=== PATIENT | male | born 1965 | race Two or more races ===

== ENCOUNTER → 2017-02-22 | Outpatient (CLI) | payer MEDICARE, BC, OTHER ==
[~2017-02-22] MED LIST: ALLO10TA PO; AMLO2.5T PO; DOXA1TAB73 PO; FURO40TA2 PO; GABA600T PO; GLIM4TAB PO; INSUDET SC; JANU50TA8 PO; LOSA100T5 PO; METO1TAB33 PO; METO1TAB7 PO; OXYC1TAB23 PO; OXYC20TA40 PO; PANT40TA2 PO; POTA99TA PO; SIMV20TA2 PO; SYNT88TA2 PO; VITATAB11 PO
--- NOTE | 2017-03-17 00:11 | ECWPNPC ---
PATIENT NAME: JENNY CREWS : 1965 GENDER: MALE VISIT DATE: 02/22/2017 DISCHARGE DATE: 02/22/17 1520 VISIT LOCKED DATE TIME: PHYSICIAN: SKYLER INIGUEZ RESOURCE: SKYLER INIGUEZ REASON FOR APPOINTMENT 1. LOW BACK/ NEUROPATHY HISTORY OF PRESENT ILLNESS FALL RISK SCREENING: SCREENING :NO FALLS IN THE PAST YEAR PAIN SCREENING: PATIENT HAS A COMPLAINT OF ACUTE OR CHRONIC PAIN :YES TODAY'S VISIT: NOTES: REFERRED BY RACIEL DALEY FOR LOW BACK PAIN WITH RADICULOPATHY. HAS HAD A LONG HISTORY OF MANY YEARS I THE LOW BACK. NOTES THE WORST HAD BEEN WHEN STANDING. HAS BEEN SEEN BY ALLISON RICO MD IN [place] WHO DID INJECTIONS WHICH PROVIDED NO RELIEF. HAS BEEN ON SMALL DOSES OF OPIATES AFTER MANY YEARS BUT THIS IS ONLY PROVIDING TEMP RELIEF. WHEN SITS DOWN BACK PAIN IMPROVES BUT THE FEET FEEL LIKE INTENSE PRICKLES. THIS HAS BEEN PRESENT FOR 5 YEARS. HAS TRIED A KWELL UNIT, CAPSACIAN, MULTIPLE LOTIONS AND CREAMS, CYMBALTA, GABAPENTIN, LYRICA, AMITRIPTLINE ALL WITH NO RELIEF. HAS DONE SOME RESEARCH ON DORSAL COLUMN STIMUL. CURRENT MEDICATIONS TAKING LOSARTAN POTASSIUM-HCTZ 100-25 MG TABLET 1 TABLET ORALLY ONCE A DAY TAKING JANUMET 50-1000 MG TABLET 1 TABLET WITH MEALS ORALLY TWICE A DAY TAKING FUROSEMIDE 40 MG TABLET 1 TABLET ORALLY ONCE A DAY TAKING GABAPENTIN 600 MG TABLET 1 TABLET ORALLY THREE TIMES A DAY TAKING LEVOTHYROXINE SODIUM 88 MCG TABLET 1 TABLET ON AN EMPTY STOMACH IN THE MORNING ORALLY ONCE A DAY TAKING DOXAZOSIN MESYLATE 8 MG TABLET 1 TABLET ORALLY ONCE A DAY TAKING SIMVASTATIN 20 MG TABLET 1 TABLET IN THE EVENING ORALLY ONCE A DAY TAKING GLIMEPIRIDE 4 MG TABLET 1 TABLET WITH BREAKFAST OR THE FIRST MAIN MEAL OF THE DAY ORALLY ONCE A DAY TAKING AMLODIPINE BESYLATE 2.5 MG TABLET 1 TABLET ORALLY ONCE A DAY TAKING METOPROLOL SUCCINATE ER 100 MG TABLET EXTENDED RELEASE 24 HOUR 1 TABLET ORALLY ONCE A DAY TAKING ALLOPURINOL 300 MG TABLET 1 TABLET ORALLY ONCE A DAY TAKING OXYCONTIN 20 MG TABLET EXTENDED RELEASE 12 HOUR 1 TABLET ORALLY EVERY 12 HRS/MMD#2 TAKING OXYCODONE-ACETAMINOPHEN 5-325 MG TABLET 1 TABLET NEEDED ORALLY EVERY 6 HRS TAKING LEVEMIR FLEXPEN TAKING GLUCOSAMINE CHOND DOUBLE STR - TABLET ORALLY TAKING POTASSIUM GLUCONATE 595 (99 K) MG TABLET ORALLY TAKING PANTOPRAZOLE SODIUM 40 MG TABLET DELAYED RELEASE 1 TABLET ORALLY ONCE A DAY TAKING GINKOBA 40 MG TABLET ORALLY TAKING VITAMIN B-1 100 MG TABLET 1 TABLET ORALLY ONCE A DAY TAKING VITAMIN B 12 100 MCG LOZENGE ORALLY TAKING VITAMIN B-6 100 MG TABLET 1 TABLET ORALLY ONCE A DAY MEDICATION LIST REVIEWED AND RECONCILED WITH THE PATIENT PAST MEDICAL HISTORY HTN SLEEP APNEA / USES BIPAP DM WITH PERIPHERAL NEUROPATHY GOUT BPH GERD HYPOTHYROIDISM HYPERCHOLESTEROLISM LOW BACK PAIN / SPINAL STENOSIS MORBID OBESITY ALLERGIES N.K.D.A. SURGICAL HISTORY APPENDECTOMY 1981 UMBILICAL HERNIA REPAIR 2006 RIGHT TOTAL KNEE REPLACEMENT 2012 SCOPE TO EACH KNEE 2003, 2006 REMOVE CATARACT LEFT 2011 REMOVE CATARACT RIGHT 2012 FAMILY HISTORY FATHER: 77 YRS, DIAGNOSED WITH HYPERTENSION, HEART DISEASE MOTHER: 70 YRS, DIAGNOSED WITH DIABETES, HYPERTENSION 1 BROTHER(S) . 3DAUGHTER(S) . SOCIAL HISTORY GENERAL: TOBACCO USE ARE YOU A:LIGHT TOBACCO SMOKER ADDITIONAL FINDINGS: TOBACCO USERCIGAR SMOKER SMOKING CESSATION INFORMATION GIVEN02/22/2017 LUNG CANCER SCREENING SMOKING STATUS:CURRENT SMOKER ALCOHOL SCREENING POINTS4 INTERPRETATIONPOSITIVE OCCUPATION: RETIRED [employer]. SHINTO [id number] RESTORATIONIST LANGUAGE LANGUAGES SPOKEN:TURKMEN EDUCATION LEVEL OF EDUCATION:HIGH SCHOOL LEARNING BARRIERS / SPECIAL NEEDS HEARING IMPAIRED?YES :HEARING AIDES VISION IMPAIRED?YES :CORRECTIVE LENSES COGNITIVELY IMPAIRED?NO READINESS TO LEARN?YES LEARNING PREFERENCES?YES :BOOKLETS, HANDOUTS SPECIAL DEVICES?YES :CANE ADVANCE DIRECTIVES HEALTH CARE PROXY?YES NAME OF HCP FATEMEH- DO YOU HAVE A DNR?YES DO YOU HAVE A COPY WITH YOU?NO LIVING WILL?NO WOULD YOU LIKE MORE INFORMATION?NO POWER OF HORTICULTURAL NURSERY ASSISTANT?NO WOULD YOU LIKE MORE INFORMATION?NO HOSPITALIZATION/MAJOR DIAGNOSTIC PROCEDURE SEE ABOVE REVIEW OF SYSTEMS FOLLOW-UP ROS: PSYCHOLOGY: SLEEP DISTURBANCE - DISRUPTED BY PAIN . REVIEWED BY: PROVIDER: SKYLER HARRIS . CONSTITUTIONAL: NEW UNEXPLAINABLE WEIGHT LOSS? HAS WORKED HARD ON WEIGHT LOSS, DOWN FROM 390 LBS . ANY CHANGE IN YOUR MEDICAL CONDITION? NO . CHILLS NO . FEVER NO . INFECTION: DO YOU HAVE NEW INFECTIONS? NO . DO YOU HAVE HISTORY OF MRSA? NO . MUSCULOSKELETAL: ANY NEW PATTERNS OF PAIN OR NUMBNESS? NO . SYTEMIC LUPUS NO . GASTROENTEROLOGY: GENERAL RECENT LOOSE STOOLS X FEW WEEKS. . ANY NEW CHANGE IN BOWEL CONTROL? NO . BARRETTS ESOPHAGUS NO . CIRRHOSIS NO . HEPATITIS NO . LIVER FAILURE NO . ADDOMINAL PAIN NONE . ACID REFLUX YES - UNDER CONTROL . UNEXPLAINED WEIGHT LOSS NO . GENITOURINARY: ANY NEW CHANGE IN BLADDER CONTROL? NO . IS THERE A CHANCE YOU COULD BE ? NO . HEMATOLOGY/LYMPH: GENERAL VARICOSE VEINS . DO YOU TAKE ANY BLOOD THINNERS? (FOR EXAMPLE- COUMADIN, PLAVIX, AGGRENOX, PLATEL, PRADAXA, OR XARELTO) NO . WHEN WAS YOUR LAST DOSE? DATE: TIME: . LOW PLATELET COUNT NO . SICKLE CELL DISEASE NO . VON WILLIEBRANDS NO . FACTOR V LEIDEN NO . THALLASEMIA NO . ANEMIA NO . EASY BRUISING NO . NEUROLOGY: HAVE YOU FALLEN IN THE PAST 6 MONTHS? YES, PT STATES HE FELL DUE TO PAIN, LOSS OF BALANCE AND WEAKNESS. PT DENIES INJURIES REQUIRING MEDICAL ATTENTION . ANY NEW EXTREMITY NUMBNESS OR WEAKNESS? NO . HEAD INJURY NO . DEMENTIA NO . CEREBRAL PALSY NO . MULTIPLE SCLEROSIS NO . DIZZINESS NO . HEADACHE INTERMITTANT - FELT TO BE DUE TO ELEVATED BLOOD PRESSURE . STROKES NO . VERTIGO NO . CARDIOLOGY: DO YOU HAVE A PACEMAKER OR DEFIBRILLATOR? NO . ANGINA NO . HEART ATTACK NO . HEART SURGERY NO . CONGESTIVE HEART FAILURE/FLUID OVERLOAD YES - ON LASIX , FOLLOWED BY DR KIMBALL . CHEST PAIN NO . HIGH BLOOD PRESSURE NO . IRREGULAR HEART BEAT NO . RESPIRATORY: HAVE YOU BEEN SICK IN THE PAST WEEK? NO . FEVER NO . FLU LIKE SYMPTOMS? NO . CPAP NO . BYPAP YES . ASTHMA NO . EMPHYSEMA NO . CHRONIC LUNG DISEASES NO . SHORTNESS OF BREATH ON EXERTION NO . COUGH NO . SNORING YES, SLEEP APNEA . INTEGUMENTARY: DO YOU HAVE ANY RASHES OR OPEN SORES? NO . ALLERGIC/IMMUNO: ARE YOU ALLERGIC TO SHELLFISH OR IV DYE? NO . ANY NEW ALLERGIES? NO . PSYCHIATRIC: DO YOU HAVE THOUGHTS OF HURTING YOURSELF OR SOMEONE ELSE? NO . ARE YOU ABUSED, NEGLECTED, OR IN AN UNSAFE ENVIRONMENT? NO . ENDOCRINOLOGY: ARE YOU DIABETIC? YES 5.4 A1C . THYROID DISORDER HYPOTHYROID, YES . OTHER: DO YOU NEED ANY PRESCRIPTIONS? NO . IF YES, PLEASE LIST: ____ . ANY NEW PROBLEMS WITH YOUR MEDICATIONS? NO . WHEN DID YOU LAST EAT? ____ . WHEN DID YOU LAST DRINK? ____ . WHAT DID YOU LAST DRINK? ____ . NAME OF PERSON DRIVING YOU HOME? ____ . DO YOU HAVE ANY OTHER QUESTIONS OR CONCERNS PT WOULD LIKE TO DISCUSS IMPLANTABLE NERVE STIMULATOR . PSYCHOLOGY: BECKS DEPRESSION INVENTORY DENIES SUICIDAL OR HOMICIDAL IDEATION . VITAL SIGNS WT 307 LBS, HT 71 IN, BMI 42.81 INDEX, BP 128/88 MM HG, HR 68 /MIN, RR 18 /MIN, TEMP 97.3 F, OXYGEN SAT % 98, REVIEWED BY: EM. EXAMINATION GENERAL EXAMINATION: GENERAL APPEARANCE:WELL GROOMED. PSYCHALERT , ORIENTED X 3 , APPROPRIATE MOOD AND AFFECT . HEENT:NORMOCEPHALIC, THICK NECK, NO THYROMEGLY, NO LYMPHADENOPATHY. LUNGS:CLEAR TO AUSCULTATION BILATERALLY, NO WHEEZES, RALES OR RHONCHI. HEART:HEART RATE REGULAR, NORMAL S1S2, NO MURMURS, CLICK OR RUBS. MUSCULOSKELETAL:TENDER WITH PALPATION OVER LUMBAT SPINOUS PROCESSES POINT TENDERNESS OVER , R>L SIJ, SLOW TO RISE TO STANDING POSITION, POSTURE UPRIGHT, GAIT WIDE BASED. POOR BALANCE. EXTREMITIES:TRACE TO 1+ LOWER EXTREMITY EDEMA. NEUROLOGIC EXAM:STOCKING AND GLOVE SENSORY LOSS RIGHT TO JUST BELOW THE KNEE AND LEFT TO MID CALF. DTR'S TRACE TO ABSENT BILATERAL LOWER EXTREMITIES. POSITIVE ROMBERG. ASSESSMENTS NEUROPATHY - G62.9 (PRIMARY) LUMBAR SPINAL STENOSIS - M48.06 TREATMENT NEUROPATHY [facility] MRI SPINE, L.S. WITHOUT [id number],SUSAN M 02/22/2017 3:02:51 PM > FOR DORSAL COLUMN STIM [facility] MRI SPINE,THORACIC WITHOUT [id number],SUSAN M 02/22/2017 3:03:16 PM > DORSAL COLUM STIM PREP NOTES: DORSAL COLUMN STIM PREP - WILL REQUEST PSYCH EVAL - [place] IF POSSIBLE , FALLS CARE PLAN: 1. RECOMMEND REMOVING ALL THROW RUGS. 2. RECOMMEND NIGHT LIGHTS 3. RECOMMEND WEARING RUBBER SOLED SHOES AND TO NOT GO BAREFOOT. 4.. ADVISED TO CHANGE POSITION SLOWLY FROM SUPINE TO STANDING TO AVOID DIZZINESS. 5. ADVISED TO USE ASSISTIVE DEVICE SUCH CANE OR WALKER 6. USE LIFELINE SERVICES OR KEEP PORTABLE PHONE READILY AVAILABLE, #128 - SCREENING BMI AND F/U PLAN IN : BMI ABOVE NORMAL TODAY. DISCUSSED WITH PATIENT NUTRITIONAL FOOD CHOICES TO ASSIST WITH WEIGHT LOSS. RECCOMMENDED REDUCING SALT, SUGAR, SODA INTAKE. WORK WITH PCP REGARDING BLOOD SUGAR CONTROL. RECOMMEND INCREASE ACTIVITY TO INCLUDE WALKING ON A REGULAR BASIS. PROFESSIONAL NUTRITIONAL NUTRITIONAL GUIDANCE WAS OFFERED AND WAS DECLINED. CLINICAL NOTES: ISTOP REGISTRY REVIEWED (#[id number]) GREATER THAN 25 MINUTES SPENT IN FACE TO FACE DISCUSSION REGARDING OPTION OF DORSAL COLUMN STIMULATOR FOR MANAGEMENT OF LOWER EXTREMITY PERIPHERAL NEUROPATHY. RISKS AND BENEFITS AND THE EVALUATION PROCESS WERE REVIEWED WITH THE PATIENT AND HIS . TYPES OF STIMULATORS WERE REVIEWED AND THE DVD FROM [employer] WAS GIVE TO THE PATIENT FOR HIS REVIEW. LUMBAR SPINAL STENOSIS [facility] MRI SPINE, L.S. WITHOUT [id number],SUSAN M 02/22/2017 3:02:51 PM > FOR DORSAL COLUMN STIM PROCEDURE CODES FA211 ESTABILISHED PATIENT [facility] FACILITY CHARGE G8783 BP SCR PRFRM RCMDD DEFIND SCR INTVL G8730 PAIN ASSESS POS TOOL F/U PLAN DOC 3016F PT SCRND UNHLTHY [place] USE 1124F ACP DISCUSS-NO DSCNMKR DOCD 1036F TOBACCO NON-USER 0518F FALL PLAN OF CARE DOCD G8427 DOC MEDS VERIFIED W/PT OR RE G8417 BMI >=30 CALCUATE W/FOLLOWUP 3288F FALL RISK ASSESSMENT DOCD DISPOSITION & COMMUNICATION FOLLOW UP DR RAI TO DISCUSS DCS (REASON: CHECK AUTH FOR LIANNA'S FOR DCS - BACK/NEUROPATHY PAIN) ELECTRONICALLY SIGNED BY CLIVE WHITE ON 03/15/2017 AT 08:26 AM EDT DISCLAIMER : THIS IS A VISIT SUMMARY EXTRACTED FROM THE [email or web address] CHART. IT IS NOT A COPY OF THE [employer] PROGRESS NOTE. MTDD
== END ==
LOC: M PAIN 13:30
PROVIDERS: ATTEND Nurse Practitioner Family
DX: G62.9 Polyneuropathy, unspecified (principal); M48.06 Spinal stenosis, lumbar region; I10 Essential (primary) hypertension; E11.9 Type 2 diabetes mellitus without complications; Z79.891 Long term (current) use of opiate analgesic; Z79.899 Other long term (current) drug therapy; Z79.84 Long term (current) use of oral hypoglycemic drugs; F17.210 Nicotine dependence, cigarettes, uncomplicated

== ENCOUNTER → 2017-04-05 | Outpatient (CLI) | payer MEDICARE, OTHER ==
--- NOTE | 2017-04-16 02:38 | ECWPNPC ---
PATIENT NAME: JENNY CREWS : 1965 GENDER: MALE VISIT DATE: 04/05/2017 DISCHARGE DATE: 04/05/17 1627 VISIT LOCKED DATE TIME: PHYSICIAN: PATRICA RAI RESOURCE: PATRICA RIA REASON FOR APPOINTMENT 1. LOW BACK PAIN HISTORY OF PRESENT ILLNESS HISTORY OF PRESENT ILLNESS: PAIN THE PATIENT DESCRIBES THE PAIN... 51 YEAR OLD MALE PATIENT WITH HISTORY OF CHRONIC LOW BACK PAIN. PATIENT DESCRIBES THE PAIN SHARP, STABBING, THROBBING, SHOOTING AND HAVING IT ALL THE TIME WITH A PAIN SCORE OF 8/10. CURRENTLY THE PATIENT IS USING OXYCONTIN AND OXYCODONE FOR THE SOMATIC PAIN AND HE STATES THAT THE MEDICATION TAKES THE EDGE OFF FROM THE PAIN IN HIS BACK BUT DOES NOT HELP THE TINGLY SENSATION HE IS HAVING IN HIS FEET. AT THIS TIME PATIENT WOULD LIKE TO PROCEED WITH THE DCS TRIAL. PATIENT DENIES UNEXPLAINABLE WEIGHT LOSS, FEVER, CHILLS, NEW CHANGES ON HIS URINARY OR BOWEL CONTROL. FALL RISK SCREENING: SCREENING :NO FALLS IN THE PAST YEAR CURRENT MEDICATIONS TAKING LOSARTAN POTASSIUM-HCTZ 100-25 MG TABLET 1 TABLET ORALLY ONCE A DAY TAKING JANUMET 50-1000 MG TABLET 1 TABLET WITH MEALS ORALLY TWICE A DAY TAKING FUROSEMIDE 40 MG TABLET 1 TABLET ORALLY ONCE A DAY TAKING GABAPENTIN 600 MG TABLET 1 TABLET ORALLY THREE TIMES A DAY TAKING LEVOTHYROXINE SODIUM 88 MCG TABLET 1 TABLET ON AN EMPTY STOMACH IN THE MORNING ORALLY ONCE A DAY TAKING DOXAZOSIN MESYLATE 8 MG TABLET 1 TABLET ORALLY ONCE A DAY TAKING SIMVASTATIN 20 MG TABLET 1 TABLET IN THE EVENING ORALLY ONCE A DAY TAKING GLIMEPIRIDE 4 MG TABLET 1 TABLET WITH BREAKFAST OR THE FIRST MAIN MEAL OF THE DAY ORALLY ONCE A DAY TAKING AMLODIPINE BESYLATE 2.5 MG TABLET 1 TABLET ORALLY ONCE A DAY TAKING METOPROLOL SUCCINATE ER 100 MG TABLET EXTENDED RELEASE 24 HOUR 1 TABLET ORALLY ONCE A DAY TAKING ALLOPURINOL 300 MG TABLET 1 TABLET ORALLY ONCE A DAY TAKING OXYCONTIN 20 MG TABLET EXTENDED RELEASE 12 HOUR 1 TABLET ORALLY EVERY 12 HRS/MMD#2 TAKING OXYCODONE-ACETAMINOPHEN 5-325 MG TABLET 1 TABLET NEEDED ORALLY EVERY 6 HRS TAKING LEVEMIR FLEXPEN TAKING GLUCOSAMINE CHOND DOUBLE STR - TABLET ORALLY TAKING POTASSIUM GLUCONATE 595 (99 K) MG TABLET ORALLY TAKING PANTOPRAZOLE SODIUM 40 MG TABLET DELAYED RELEASE 1 TABLET ORALLY ONCE A DAY TAKING GINKOBA 40 MG TABLET ORALLY TAKING VITAMIN B-1 100 MG TABLET 1 TABLET ORALLY ONCE A DAY TAKING VITAMIN B 12 100 MCG LOZENGE ORALLY TAKING VITAMIN B-6 100 MG TABLET 1 TABLET ORALLY ONCE A DAY MEDICATION LIST REVIEWED AND RECONCILED WITH THE PATIENT PAST MEDICAL HISTORY HTN SLEEP APNEA / USES BIPAP DM WITH PERIPHERAL NEUROPATHY GOUT BPH GERD HYPOTHYROIDISM HYPERCHOLESTEROLISM LOW BACK PAIN / SPINAL STENOSIS MORBID OBESITY ALLERGIES N.K.D.A. SOCIAL HISTORY GENERAL: TOBACCO USE ARE YOU A:LIGHT TOBACCO SMOKER ADDITIONAL FINDINGS: TOBACCO USERCIGAR SMOKER SMOKING CESSATION INFORMATION GIVEN02/22/2017 LUNG CANCER SCREENING SMOKING STATUS:CURRENT SMOKER ALCOHOL SCREENING DID YOU HAVE A DRINK CONTAINING ALCOHOL IN THE PAST YEAR?YES HOW MANY DRINKS DID YOU HAVE ON A TYPICAL DAY WHEN YOU WERE DRINKING IN THE PAST YEAR?3 OR 4 (1 POINT) HOW OFTEN DID YOU HAVE A DRINK CONTAINING ALCOHOL IN THE PAST YEAR?TWO TO THREE TIMES PER WEEK (3 POINTS) POINTS4 INTERPRETATIONPOSITIVE OCCUPATION: RETIRED [employer]. SHINTO [id number] TAOISM LANGUAGE LANGUAGES SPOKEN:GEORGIAN EDUCATION LEVEL OF EDUCATION:HIGH SCHOOL LEARNING BARRIERS / SPECIAL NEEDS HEARING IMPAIRED?YES VISION IMPAIRED?YES COGNITIVELY IMPAIRED?NO :HEARING AIDES :CORRECTIVE LENSES READINESS TO LEARN?YES LEARNING PREFERENCES?YES :BOOKLETS, HANDOUTS SPECIAL DEVICES?YES :[facility] PFS, CLERGY, PUBLIC HEALTH REFERRALS HAS THE PATIENT BEEN EDUCATED REGARDING HIS/HER PLAN OF CARE?YES HAS THE PATIENT BEEN EDUCATED REGARDING PAIN, THE RISK FOR PAIN, THE IMPORTANCE OF EFFECTIVE PAIN MANAGEMENT, AND THE PAIN ASSESSMENT PROCESS?YES ADVANCE DIRECTIVES HEALTH CARE PROXY?YES NAME OF HCP FATEMEH- POWER OF TRANSFER COORDINATOR?NO DO YOU HAVE A DNR?YES DO YOU HAVE A COPY WITH YOU?NO LIVING WILL?NO WOULD YOU LIKE MORE INFORMATION?NO WOULD YOU LIKE MORE INFORMATION?NO REVIEW OF SYSTEMS REVIEWED BY: PROVIDER: PATRICA RAI MD . CONSTITUTIONAL: ANY CHANGE IN YOUR MEDICAL CONDITION? NO . CHILLS NO . FEVER NO . INFECTION: DO YOU HAVE NEW INFECTIONS? NO . DO YOU HAVE HISTORY OF MRSA? NO . MUSCULOSKELETAL: ANY NEW PATTERNS OF PAIN OR NUMBNESS? NO . GASTROENTEROLOGY: ANY NEW CHANGE IN BOWEL CONTROL? NO . GENITOURINARY: ANY NEW CHANGE IN BLADDER CONTROL? NO . IS THERE A CHANCE YOU COULD BE ? NO . HEMATOLOGY/LYMPH: DO YOU TAKE ANY BLOOD THINNERS? (FOR EXAMPLE- COUMADIN, PLAVIX, AGGRENOX, PLATEL, PRADAXA, OR XARELTO) NO . WHEN WAS YOUR LAST DOSE? DATE: TIME: . NEUROLOGY: HAVE YOU FALLEN IN THE PAST 6 MONTHS? NO . ANY NEW EXTREMITY NUMBNESS OR WEAKNESS? NO . CARDIOLOGY: DO YOU HAVE A PACEMAKER OR DEFIBRILLATOR? NO . RESPIRATORY: HAVE YOU BEEN SICK IN THE PAST WEEK? NO . FEVER NO . FLU LIKE SYMPTOMS? NO . COUGH NO . INTEGUMENTARY: DO YOU HAVE ANY RASHES OR OPEN SORES? NO . ALLERGIC/IMMUNO: ARE YOU ALLERGIC TO SHELLFISH OR IV DYE? NO . ANY NEW ALLERGIES? NO . PSYCHIATRIC: DO YOU HAVE THOUGHTS OF HURTING YOURSELF OR SOMEONE ELSE? NO . ARE YOU ABUSED, NEGLECTED, OR IN AN UNSAFE ENVIRONMENT? NO . ENDOCRINOLOGY: ARE YOU DIABETIC? NO . OTHER: DO YOU NEED ANY PRESCRIPTIONS? NO . IF YES, PLEASE LIST: ____ . ANY NEW PROBLEMS WITH YOUR MEDICATIONS? NO . WHEN DID YOU LAST EAT? ____ . WHEN DID YOU LAST DRINK? ____ . WHAT DID YOU LAST DRINK? ____ . NAME OF PERSON DRIVING YOU HOME? ____ . DO YOU HAVE ANY OTHER QUESTIONS OR CONCERNS NO . VITAL SIGNS WT 307 LBS, HT 71 IN, BMI 42.81 INDEX, BP 133/78 MM HG, HR 72 /MIN, RR 18 /MIN, TEMP 98.6 F, OXYGEN SAT % 98%, NA INITIALS AW 1521. EXAMINATION : PATIENT IS ALERT O X 3 AND COOPERATIVE. TENDERNESS IN THE LOWER BACK AND PARASPINAL MUSCLE GROUP. WALKS WITH CANE. MRI OF THE LUMBAR SPINE DONE ON 03/14/17 SHOWS LUMBAR STENOSIS AT L4-L5 AND A DISC BULGE AND HYPERTROPHY. PENDING THORACIC MRI. ASSESSMENTS RADICULOPATHY OF LUMBAR REGION - M54.16 (PRIMARY) SPINAL STENOSIS OF LUMBAR REGION WITHOUT NEUROGENIC CLAUDICATION - M48.061 POLYNEUROPATHY - G62.9 TREATMENT RADICULOPATHY OF LUMBAR REGION NOTES: WE DISCUSSED SEVERAL ISSUES WITH MR. CREWS'S PAIN MANAGEMENT CASE. AT THIS TIME THE PATIENT WILL CONTINUE WITH THE SAME MEDICATION REGIME. PATIENT IS AWARE HE WILL NEED TO WEEN OFF HIS PAIN MEDICATIONS PRIOR TO THE DCS TRIAL. WE REVIEWED THE PSYCHOLOGICAL EVALUATION AND PATIENT IS CLEARED TO MOVE FORWARD. MR. CREWS WILL BE GETTING A THORACIC MRI TO MAKE SURE THERE IS ENOUGH ROOM FOR THE LEADS TO PASS THROUGH. PATIENT WILL ALSO NEED A CLEARANCE FROM THE PRIMARY CARE DOCTOR. WE DISCUSSED THE RISKS, BENENFITS, AND ALTNERATIVES TO THIS TRIAL AND THE PATIENT WOULD LIKE TO PROCEED AT THIS TIME. INSTRUCTIONS WERE GIVEN, QUESTIONS WERE ANSWERED, PATIENT REPORTS UNDERSTANDING AND AGREES WITH THE PLAN. I, JASMIN HUA, DOCUMENTED THE ABOVE INFORMATION ACTING A SCRIBE FOR DR. RAI. I HAVE REVIEWED THE ABOVE DOCUMENT, WRITTEN BY JASMIN HANNAH AND I VERIFY THAT IT IS ACCURATE. PROCEDURE CODES FA211 ESTABILISHED PATIENT [facility] CHARGE G8427 DOC MEDS VERIFIED W/PT OR RE G8730 PAIN ASSESS POS TOOL F/U PLAN DOC DISPOSITION & COMMUNICATION FOLLOW UP 2 WEEKS ELECTRONICALLY SIGNED BY PATRICA RAI MD ON 04/15/2017 AT 11:47 AM EDT DISCLAIMER : THIS IS A VISIT SUMMARY EXTRACTED FROM THE [employer] CHART. IT IS NOT A COPY OF THE [employer] PROGRESS NOTE. MTDD
== END ==
LOC: M PAIN 15:15
PROVIDERS: ATTEND Anesthesiology
DX: G89.29 Other chronic pain (principal); M54.16 Radiculopathy, lumbar region; M48.061 Spinal stenosis, lumbar region without neurogenic claudication; G62.9 Polyneuropathy, unspecified; I10 Essential (primary) hypertension; G47.30 Sleep apnea, unspecified; E11.9 Type 2 diabetes mellitus without complications; E03.9 Hypothyroidism, unspecified; E66.01 Morbid (severe) obesity due to excess calories; Z68.41 Body mass index [BMI] 40.0-44.9, adult; F17.290 Nicotine dependence, other tobacco product, uncomplicated; Z79.4 Long term (current) use of insulin; Z79.891 Long term (current) use of opiate analgesic; Z79.899 Other long term (current) drug therapy

== ENCOUNTER → 2017-04-18 | Outpatient (CLI) | payer MEDICARE, OTHER ==
--- NOTE | 2017-05-08 01:52 | ECWPNPC ---
PATIENT NAME: JENNY CREWS : 1965 GENDER: MALE VISIT DATE: 04/18/2017 DISCHARGE DATE: 04/18/17 1739 VISIT LOCKED DATE TIME: PHYSICIAN: PATRICA RAI RESOURCE: PATRICA RAI REASON FOR APPOINTMENT 1. LOW BACK PAIN HISTORY OF PRESENT ILLNESS FALL RISK SCREENING: SCREENING :NO FALLS IN THE PAST YEAR 51 YEAR OLD MALE PATIENT WITH HISTORY OF CHRONIC LOW BACK PAIN. PATIENT DESCRIBES THE PAIN SHARP, STABBING, THROBBING, SHOOTING AND HAVING IT ALL THE TIME WITH A PAIN SCORE OF 8/10. CURRENTLY THE PATIENT IS USING OXYCONTIN AND OXYCODONE FOR THE SOMATIC PAIN AND HE STATES THAT THE MEDICATION TAKES THE EDGE OFF FROM THE PAIN IN HIS BACK BUT DOES NOT HELP THE TINGLY SENSATION HE IS HAVING IN HIS FEET. AT THIS TIME PATIENT WOULD LIKE TO PROCEED WITH THE DCS TRIAL, PATIENT HAS RECEIVED THORACIC AND LUMBAR MRI'S AND HAS HAD A PSYCHOLOGICAL EVALUATION. PATIENT DENIES UNEXPLAINABLE WEIGHT LOSS, FEVER, CHILLS, NEW CHANGES ON HIS URINARY OR BOWEL CONTROL. PAIN SCREENING: PATIENT HAS A COMPLAINT OF ACUTE OR CHRONIC PAIN :YES CURRENT MEDICATIONS TAKING LOSARTAN POTASSIUM-HCTZ 100-25 MG TABLET 1 TABLET ORALLY ONCE A DAY TAKING JANUMET 50-1000 MG TABLET 1 TABLET WITH MEALS ORALLY TWICE A DAY TAKING FUROSEMIDE 40 MG TABLET 1 TABLET ORALLY ONCE A DAY TAKING GABAPENTIN 600 MG TABLET 1 TABLET ORALLY THREE TIMES A DAY TAKING LEVOTHYROXINE SODIUM 88 MCG TABLET 1 TABLET ON AN EMPTY STOMACH IN THE MORNING ORALLY ONCE A DAY TAKING DOXAZOSIN MESYLATE 8 MG TABLET 1 TABLET ORALLY ONCE A DAY TAKING SIMVASTATIN 20 MG TABLET 1 TABLET IN THE EVENING ORALLY ONCE A DAY TAKING GLIMEPIRIDE 4 MG TABLET 1 TABLET WITH BREAKFAST OR THE FIRST MAIN MEAL OF THE DAY ORALLY ONCE A DAY TAKING AMLODIPINE BESYLATE 2.5 MG TABLET 1 TABLET ORALLY ONCE A DAY TAKING METOPROLOL SUCCINATE ER 100 MG TABLET EXTENDED RELEASE 24 HOUR 1 TABLET ORALLY ONCE A DAY TAKING ALLOPURINOL 300 MG TABLET 1 TABLET ORALLY ONCE A DAY TAKING OXYCONTIN 20 MG TABLET EXTENDED RELEASE 12 HOUR 1 TABLET ORALLY EVERY 12 HRS/MMD#2 TAKING OXYCODONE-ACETAMINOPHEN 5-325 MG TABLET 1 TABLET NEEDED ORALLY EVERY 6 HRS TAKING LEVEMIR FLEXPEN TAKING GLUCOSAMINE CHOND DOUBLE STR - TABLET ORALLY TAKING POTASSIUM GLUCONATE 595 (99 K) MG TABLET ORALLY TAKING PANTOPRAZOLE SODIUM 40 MG TABLET DELAYED RELEASE 1 TABLET ORALLY ONCE A DAY TAKING VITAMIN B-1 100 MG TABLET 1 TABLET ORALLY ONCE A DAY TAKING VITAMIN B 12 100 MCG LOZENGE ORALLY TAKING VITAMIN B-6 100 MG TABLET 1 TABLET ORALLY ONCE A DAY NOT-TAKING GINKOBA 40 MG TABLET ORALLY MEDICATION LIST REVIEWED AND RECONCILED WITH THE PATIENT PAST MEDICAL HISTORY HTN SLEEP APNEA / USES BIPAP DM WITH PERIPHERAL NEUROPATHY GOUT BPH GERD HYPOTHYROIDISM HYPERCHOLESTEROLISM LOW BACK PAIN / SPINAL STENOSIS MORBID OBESITY ALLERGIES N.K.D.A. FAMILY HISTORY FATHER: 77 YRS, DIAGNOSED WITH DIABETES, HYPERTENSION, HEART DISEASE MOTHER: 70 YRS, DIAGNOSED WITH DIABETES, HYPERTENSION 1 BROTHER(S) - HEALTHY. 3DAUGHTER(S) - HEALTHY. SOCIAL HISTORY GENERAL: TOBACCO USE ARE YOU A:LIGHT TOBACCO SMOKER ADDITIONAL FINDINGS: TOBACCO USERCIGAR SMOKER SMOKING CESSATION INFORMATION GIVEN02/22/2017 LUNG CANCER SCREENING SMOKING STATUS:CURRENT SMOKER ALCOHOL SCREENING DID YOU HAVE A DRINK CONTAINING ALCOHOL IN THE PAST YEAR?YES HOW MANY DRINKS DID YOU HAVE ON A TYPICAL DAY WHEN YOU WERE DRINKING IN THE PAST YEAR?3 OR 4 (1 POINT) HOW OFTEN DID YOU HAVE A DRINK CONTAINING ALCOHOL IN THE PAST YEAR?TWO TO THREE TIMES PER WEEK (3 POINTS) POINTS4 INTERPRETATIONPOSITIVE OCCUPATION: RETIRED [employer]. CHRISTIAN [id number] LANGU[employer] LANGUAGES SPOKEN:LUXEMBOURGER EDUCATION LEVEL OF EDUCATION:HIGH SCHOOL LEARNING BARRIERS / SPECIAL NEEDS HEARING IMPAIRED?YES VISION IMPAIRED?YES COGNITIVELY IMPAIRED?NO :HEARING AIDES :CORRECTIVE LENSES READINESS TO LEARN?YES LEARNING PREFERENCES?YES :BOOKLETS, HANDOUTS SPECIAL DEVICES?YES :C[facility] PA[facility]IN[facility] PFS, CLERGY, PUBLIC HEALTH REFERRALS WAS THE PROVIDER NOTIFIED OF ANY PERTINENT INFO?YES HAS THE PATIENT BEEN EDUCATED REGARDING HIS/HER PLAN OF CARE?YES PLEASE DOCUMENT ANY ADDTIONAL DETAILS. PRE-OPERATIVE APPT HAS THE PATIENT BEEN EDUCATED REGARDING PAIN, THE RISK FOR PAIN, THE IMPORTANCE OF EFFECTIVE PAIN MANAGEMENT, AND THE PAIN ASSESSMENT PROCESS?YES REVIEWED BY: MARIANA. ADVANCE DIRECTIVES HEALTH CARE PROXY?YES NAME OF HCP FATEMEH- DO YOU HAVE A DNR?YES DO YOU HAVE A COPY WITH YOU?NO LIVING WILL?NO WOULD YOU LIKE MORE INFORMATION?NO POWER OF BAG SEWER?NO WOULD YOU LIKE MORE INFORMATION?NO REVIEW OF SYSTEMS REVIEWED BY: PROVIDER: PATRICA RAI MD . CONSTITUTIONAL: ANY CHANGE IN YOUR MEDICAL CONDITION? NO . CHILLS NO . FEVER NO . INFECTION: DO YOU HAVE NEW INFECTIONS? NO . DO YOU HAVE HISTORY OF MRSA? NO . MUSCULOSKELETAL: ANY NEW PATTERNS OF PAIN OR NUMBNESS? NO . SYTEMIC LUPUS NO . GASTROENTEROLOGY: ANY NEW CHANGE IN BOWEL CONTROL? NO . BARRETTS ESOPHAGUS NO . CIRRHOSIS NO . HEPATITIS NO . LIVER FAILURE NO . ACID REFLUX NO . UNEXPLAINED WEIGHT LOSS NO . GENITOURINARY: ANY NEW CHANGE IN BLADDER CONTROL? NO . IS THERE A CHANCE YOU COULD BE ? NO . HEMATOLOGY/LYMPH: DO YOU TAKE ANY BLOOD THINNERS? (FOR EXAMPLE- COUMADIN, PLAVIX, AGGRENOX, PLATEL, PRADAXA, OR XARELTO) NO . WHEN WAS YOUR LAST DOSE? DATE: TIME: . LOW PLATELET COUNT NO . SICKLE CELL DISEASE NO . VON WILLIEBRANDS NO . FACTOR V LEIDEN NO . THALLASEMIA NO . ANEMIA NO . EASY BRUISING NO . NEUROLOGY: HAVE YOU FALLEN IN THE PAST 6 MONTHS? NO . ANY NEW EXTREMITY NUMBNESS OR WEAKNESS? NO . HEAD INJURY NO . DEMENTIA NO . CEREBRAL PALSY NO . MULTIPLE SCLEROSIS NO . DIZZINESS NO . HEADACHE NO . STROKES NO . VERTIGO NO . CARDIOLOGY: DO YOU HAVE A PACEMAKER OR DEFIBRILLATOR? NO . ANGINA NO . HEART ATTACK NO . HEART SURGERY NO . CONGESTIVE HEART FAILURE/FLUID OVERLOAD NO . CHEST PAIN NO . HIGH BLOOD PRESSURE NO . IRREGULAR HEART BEAT NO . RESPIRATORY: HAVE YOU BEEN SICK IN THE PAST WEEK? NO . FEVER NO . FLU LIKE SYMPTOMS? NO . CPAP NO . BYPAP NO . ASTHMA NO . EMPHYSEMA NO . CHRONIC LUNG DISEASES NO . SHORTNESS OF BREATH ON EXERTION NO . COUGH NO . SNORING NO . INTEGUMENTARY: DO YOU HAVE ANY RASHES OR OPEN SORES? NO . ALLERGIC/IMMUNO: ARE YOU ALLERGIC TO SHELLFISH OR IV DYE? NO . ANY NEW ALLERGIES? NO . PSYCHIATRIC: DO YOU HAVE THOUGHTS OF HURTING YOURSELF OR SOMEONE ELSE? NO . ARE YOU ABUSED, NEGLECTED, OR IN AN UNSAFE ENVIRONMENT? NO . ENDOCRINOLOGY: ARE YOU DIABETIC? YES. . THYROID DISORDER NO . OTHER: DO YOU NEED ANY PRESCRIPTIONS? NO . IF YES, PLEASE LIST: ____ . ANY NEW PROBLEMS WITH YOUR MEDICATIONS? NO . WHEN DID YOU LAST EAT? 04/17/17 PM . WHEN DID YOU LAST DRINK? ____30 MIN AGO . WHAT DID YOU LAST DRINK? APPLE JUICE . NAME OF PERSON DRIVING YOU HOME? FATEMEH . DO YOU HAVE ANY OTHER QUESTIONS OR CONCERNS PT STATES THAT SHE IS A CURRENT SMOKER, REFUSING ANY SMOKING CESSATION COUSELING AT THIS TIME. MARIANA . VITAL SIGNS WT 307 LBS, HT 71 IN, BMI 42.81 INDEX, BP 128/83 MM HG, HR 73 /MIN, RR 18 /MIN, TEMP 97.5 F, OXYGEN SAT % 98%, SAFE IN ENV? (Y/N) Y, NA INITIALS SC 15:22, REVIEWED BY: MARIANA. EXAMINATION : PATIENT IS ALERT O X 3 AND COOPERATIVE. TENDERNESS IN THE LOWER BACK AND PARASPINAL MUSCLE GROUP. WALKS WITH CANE. MRI OF THE LUMBAR SPINE DONE ON 03/14/17 SHOWS LUMBAR STENOSIS AT L4-L5 AND A DISC BULGE AND HYPERTROPHY. PENDING THORACIC MRI. ASSESSMENTS RADICULOPATHY OF LUMBAR REGION - M54.16 (PRIMARY) SPINAL STENOSIS OF LUMBAR REGION WITHOUT NEUROGENIC CLAUDICATION - M48.061 POLYNEUROPATHY - G62.9 TREATMENT RADICULOPATHY OF LUMBAR REGION NOTES: WE DISCUSSED SEVERAL ISSUES WITH MR. CREWS'S PAIN MANAGEMENT CASE. AT THIS TIME THE PATIENT WILL CONTINUE WITH THE SAME MEDICATION REGIME. PATIENT IS AWARE HE WILL NEED TO WEEN OFF HIS PAIN MEDICATIONS PRIOR TO THE DCS TRIAL. PATIENT ALSO IS AWARE HE WILL NOT BE ABLE TO USE IBUPROFEN, ASPIRIN, OR FISH OIL 10 DAYS PRIOR TO TRIAL. I HAVE REVIEWED THE PATIENTS PSYCHOLOGICAL EVALUATION WELL THE MRI'S PATIENT WILL STILL NEED A CLEARANCE FROM HIS PRIMARY CARE PHYSICIAN. PATIENT WILL ALSO BE PRESCRIBED KEFLEX THAT WILL BE USED ONCE HE HAS RETURNED HOME FROM THE HOSPITAL. WE DISCUSSED THE RISKS, BENENFITS, AND ALTNERATIVES OF THE DCS TRIAL AND THE PATIENT WOULD LIKE TO PROCEED AT THIS TIME. INSTRUCTIONS WERE GIVEN, QUESTIONS WERE ANSWERED, PATIENT REPORTS UNDERSTANDING AND AGREES WITH THE PLAN. I, JASMIN HUA, DOCUMENTED THE ABOVE INFORMATION ACTING A SCRIBE FOR DR. RAI. I HAVE REVIEWED THE ABOVE DOCUMENT, WRITTEN BY JASMIN HANNAH AND I VERIFY THAT IT IS ACCURATE. OTHERS START CYMBALTA CAPSULE DELAYED RELEASE PARTICLES, 30 MG, 1 CAPSULE, ORALLY, TWICE A DAY, 30 DAY(S), 60, REFILLS 1 START ZANAFLEX CAPSULE, 2 MG, 1 CAPSULE NEEDED, ORALLY, BEFORE BEDTIME MAY REPAET IN 5 HRS MDD2, 30 DAY(S), 50, REFILLS 1 START CELEBREX CAPSULE, 200 MG, 1 CAPSULE WITH FOOD, ORALLY, ONCE A DAY, 30 DAY(S), 30, REFILLS 1 START OXYCODONE HCL TABLET, 5 MG, 1 TABLET, ORALLY FOR PAIN, EVERY 6 HRS MDD3, 7 DAY(S), 21, REFILLS 0 START KEFLEX CAPSULE, 500 MG, 1 CAPSULE, ORALLY, THREE TIMES DAILY, 10 DAY(S), 30, REFILLS 0 PROCEDURE CODES FA211 ESTABILISHED PATIENT [facility] CHARGE G8427 DOC MEDS VERIFIED W/PT OR RE G8730 PAIN ASSESS POS TOOL F/U PLAN DOC DISPOSITION & COMMUNICATION FOLLOW UP 3 WEEKS ELECTRONICALLY SIGNED BY PTARICA RAI MD ON 05/07/2017 AT 02:24 PM EST DISCLAIMER : THIS IS A VISIT SUMMARY EXTRACTED FROM THE [employer] CHART. IT IS NOT A COPY OF THE [employer] PROGRESS NOTE. MTDD
== END ==
LOC: M PAIN 15:15
PROVIDERS: ATTEND Anesthesiology
DX: M54.16 Radiculopathy, lumbar region (principal); M48.061 Spinal stenosis, lumbar region without neurogenic claudication; G62.9 Polyneuropathy, unspecified; G89.29 Other chronic pain; K21.9 Gastro-esophageal reflux disease without esophagitis; E03.9 Hypothyroidism, unspecified; E11.40 Type 2 diabetes mellitus with diabetic neuropathy, unspecified; F17.210 Nicotine dependence, cigarettes, uncomplicated; Z79.84 Long term (current) use of oral hypoglycemic drugs; Z79.891 Long term (current) use of opiate analgesic; Z79.899 Other long term (current) drug therapy

== ENCOUNTER → 2017-05-03 | Outpatient (CLI) | payer MEDICARE, OTHER ==
--- NOTE | 2017-05-03 14:13 | REP ---
Partial lumbar spine series: Two views . History: Injection procedure for pain. 36 seconds of fluoroscopy time is reported. Findings: A sequence of two fluoroscopically obtained last image hold procedural spot radiographs of the lumbar spine document needle position and contrast injection associated with injection procedure. Signed by Lobo Barakat MD 05/03/2017 02:04 P
--- NOTE | 2017-05-19 23:56 | ECWPNPC ---
PATIENT NAME: JENNY CREWS : 1965 GENDER: MALE VISIT DATE: 05/03/2017 DISCHARGE DATE: 05/03/17 1401 VISIT LOCKED DATE TIME: PHYSICIAN: PATRICA RAI RESOURCE: PATRICA RAI REASON FOR APPOINTMENT 1. LOW BACK PAIN HISTORY OF PRESENT ILLNESS HISTORY OF PRESENT ILLNESS: PAIN THE PATIENT DESCRIBES THE PAIN... 51 YEAR OLD MALE PATIENT WITH HISTORY OF CHRONIC LOW BACK PAIN. PATIENT DESCRIBES THE PAIN SHARP, STABBING, AND SHOOTING WITH A PAIN SCORE OF 2/10. PATIENT REPORTS HAVING OVER 80 % RELIEF FROM THE DCS TRIAL AND WOULD LIKE TO PROCEED WITH THE PERMANENT DCS. PATIENT REPORTS HE DID NOT NEED TO USE HIS MEDICATION DURING THE TRIAL DUE TO RELIEF HE GOT. PATIENT DENIES UNEXPLAINABLE WEIGHT LOSS, FEVER, CHILLS, NEW CHANGES ON HIS URINARY OR BOWEL CONTROL. FALL RISK SCREENING: SCREENING :NO FALLS IN THE PAST YEAR CURRENT MEDICATIONS TAKING LOSARTAN POTASSIUM-HCTZ 100-25 MG TABLET 1 TABLET ORALLY ONCE A DAY TAKING JANUMET 50-1000 MG TABLET 1 TABLET WITH MEALS ORALLY TWICE A DAY TAKING FUROSEMIDE 40 MG TABLET 1 TABLET ORALLY ONCE A DAY TAKING GABAPENTIN 600 MG TABLET 1 TABLET ORALLY THREE TIMES A DAY TAKING LEVOTHYROXINE SODIUM 88 MCG TABLET 1 TABLET ON AN EMPTY STOMACH IN THE MORNING ORALLY ONCE A DAY TAKING DOXAZOSIN MESYLATE 8 MG TABLET 1 TABLET ORALLY ONCE A DAY TAKING SIMVASTATIN 20 MG TABLET 1 TABLET IN THE EVENING ORALLY ONCE A DAY TAKING GLIMEPIRIDE 4 MG TABLET 1 TABLET WITH BREAKFAST OR THE FIRST MAIN MEAL OF THE DAY ORALLY ONCE A DAY TAKING AMLODIPINE BESYLATE 2.5 MG TABLET 1 TABLET ORALLY ONCE A DAY TAKING METOPROLOL SUCCINATE ER 100 MG TABLET EXTENDED RELEASE 24 HOUR 1 TABLET ORALLY ONCE A DAY TAKING ALLOPURINOL 300 MG TABLET 1 TABLET ORALLY ONCE A DAY TAKING OXYCONTIN 20 MG TABLET EXTENDED RELEASE 12 HOUR 1 TABLET ORALLY EVERY 12 HRS/MMD#2 TAKING OXYCODONE-ACETAMINOPHEN 5-325 MG TABLET 1 TABLET NEEDED ORALLY DAILY TAKING LEVEMIR FLEXPEN 45 UNITS SUBCUTANEOUSLY DAILY TAKING POTASSIUM GLUCONATE 595 (99 K) MG TABLET 1 TAB ORALLY BID TAKING PANTOPRAZOLE SODIUM 40 MG TABLET DELAYED RELEASE 1 TABLET ORALLY BID TAKING KEFLEX 500 MG CAPSULE 1 CAPSULE ORALLY THREE TIMES DAILY TAKING VITAMIN B COMPLEX - TABLET 1 TAB ORALLY DAILY TAKING METOPROLOL SUCCINATE ER 50 MG TABLET EXTENDED RELEASE 24 HOUR 1 TABLET ORALLY BEFORE BEDTIME NOT-TAKING GLUCOSAMINE CHOND DOUBLE STR - TABLET ORALLY NOT-TAKING CELEBREX 200 MG CAPSULE 1 CAPSULE WITH FOOD ORALLY ONCE A DAY DISCONTINUED VITAMIN B-1 100 MG TABLET 1 TABLET ORALLY ONCE A DAY DISCONTINUED VITAMIN B 12 100 MCG LOZENGE ORALLY DISCONTINUED VITAMIN B-6 100 MG TABLET 1 TABLET ORALLY ONCE A DAY DISCONTINUED CYMBALTA 30 MG CAPSULE DELAYED RELEASE PARTICLES 1 CAPSULE ORALLY TWICE A DAY DISCONTINUED ZANAFLEX 2 MG CAPSULE 1 CAPSULE NEEDED ORALLY BEFORE BEDTIME MAY REPAET IN 5 HRS MDD2 DISCONTINUED OXYCODONE HCL 5 MG TABLET 1 TABLET ORALLY FOR PAIN EVERY 6 HRS MDD3 DISCONTINUED GINKOBA 40 MG TABLET ORALLY MEDICATION LIST REVIEWED AND RECONCILED WITH THE PATIENT PAST MEDICAL HISTORY HTN SLEEP APNEA / USES BIPAP DM WITH PERIPHERAL NEUROPATHY GOUT BPH GERD HYPOTHYROIDISM HYPERCHOLESTEROLISM LOW BACK PAIN / SPINAL STENOSIS MORBID OBESITY ALLERGIES N.K.D.A. SOCIAL HISTORY GENERAL: TOBACCO USE ARE YOU A:LIGHT TOBACCO SMOKER ADDITIONAL FINDINGS: TOBACCO USERCIGAR SMOKER SMOKING CESSATION INFORMATION GIVEN05/03/2017 LUNG CANCER SCREENING SMOKING STATUS:CURRENT SMOKER ALCOHOL SCREENING DID YOU HAVE A DRINK CONTAINING ALCOHOL IN THE PAST YEAR?YES HOW MANY DRINKS DID YOU HAVE ON A TYPICAL DAY WHEN YOU WERE DRINKING IN THE PAST YEAR?3 OR 4 (1 POINT) HOW OFTEN DID YOU HAVE A DRINK CONTAINING ALCOHOL IN THE PAST YEAR?TWO TO THREE TIMES PER WEEK (3 POINTS) POINTS4 INTERPRETATIONPOSITIVE RECREATIONAL DRUG USE DRUG USE?NO CAFFEINE CAFFEINE USE?YES HOW OFTEN AND HOW MUCH? 1 CUP COFFEE EVERY OTHER DAY OCCUPATION: RETIRED [employer]. DIET: REGULAR. EXERCISE: NO REGULAR EXERCISE. LATTER-DAY [id number] [facility] LANGUAGE LANGUAGES SPOKEN:MALAYSIAN EDUCATION LEVEL OF EDUCATION:HIGH SCHOOL LEARNING BARRIERS / SPECIAL NEEDS BARRIERS TO LEARNING?NO HEARING IMPAIRED?YES :HEARING AIDES VISION IMPAIRED?YES :CORRECTIVE LENSES COGNITIVELY IMPAIRED?NO READINESS TO LEARN?YES LEARNING PREFERENCES?YES :BOOKLETS, HANDOUTS LEARNING CAPABILITIES PRESENT?YES EMOTIONAL BARRIERS?NO SPECIAL DEVICES?YES :CANE CATERING DRIVER NEEDED?NO PAIN CLINIC PFS, CLERGY, PUBLIC HEALTH REFERRALS WAS THE PROVIDER NOTIFIED OF ANY PERTINENT INFO?YES HAS THE PATIENT BEEN EDUCATED REGARDING HIS/HER PLAN OF CARE?YES PLEASE DOCUMENT ANY ADDTIONAL DETAILS. PRE-OPERATIVE APPT HAS THE PATIENT BEEN EDUCATED REGARDING PAIN, THE RISK FOR PAIN, THE IMPORTANCE OF EFFECTIVE PAIN MANAGEMENT, AND THE PAIN ASSESSMENT PROCESS?YES REVIEWED BY: 04/03/17 1125 AD. ADVANCE DIRECTIVES HEALTH CARE PROXY?YES NAME OF HCP FATEMEH- DO YOU HAVE A DNR?YES DO YOU HAVE A COPY WITH YOU?NO LIVING WILL?NO WOULD YOU LIKE MORE INFORMATION?NO POWER OF DEVELOPMENT PROFESSIONAL?NO WOULD YOU LIKE MORE INFORMATION?NO DOMESTIC VIOLENCE DO YOU FEEL SAFE IN YOUR ENVIRONMENT?YES REVIEW OF SYSTEMS REVIEWED BY: PROVIDER: . CONSTITUTIONAL: ANY CHANGE IN YOUR MEDICAL CONDITION? NO . CHILLS NO . FEVER NO . INFECTION: DO YOU HAVE NEW INFECTIONS? NO . DO YOU HAVE HISTORY OF MRSA? NO . MUSCULOSKELETAL: ANY NEW PATTERNS OF PAIN OR NUMBNESS? NO . GASTROENTEROLOGY: ANY NEW CHANGE IN BOWEL CONTROL? NO . GENITOURINARY: ANY NEW CHANGE IN BLADDER CONTROL? NO . IS THERE A CHANCE YOU COULD BE ? NO . HEMATOLOGY/LYMPH: DO YOU TAKE ANY BLOOD THINNERS? (FOR EXAMPLE- COUMADIN, PLAVIX, AGGRENOX, PLATEL, PRADAXA, OR XARELTO) NO . WHEN WAS YOUR LAST DOSE? DATE: TIME: . NEUROLOGY: HAVE YOU FALLEN IN THE PAST 6 MONTHS? YES, 3 TIMES - JUST-- LOST HIS BALANCE, NO INJURIES, NOT SEEN . ANY NEW EXTREMITY NUMBNESS OR WEAKNESS? NO . CARDIOLOGY: DO YOU HAVE A PACEMAKER OR DEFIBRILLATOR? NO . RESPIRATORY: HAVE YOU BEEN SICK IN THE PAST WEEK? NO . FEVER NO . FLU LIKE SYMPTOMS? NO . COUGH NO . INTEGUMENTARY: DO YOU HAVE ANY RASHES OR OPEN SORES? NO . ALLERGIC/IMMUNO: ARE YOU ALLERGIC TO SHELLFISH OR IV DYE? NO . ANY NEW ALLERGIES? NO . PSYCHIATRIC: DO YOU HAVE THOUGHTS OF HURTING YOURSELF OR SOMEONE ELSE? NO . ARE YOU ABUSED, NEGLECTED, OR IN AN UNSAFE ENVIRONMENT? NO . ENDOCRINOLOGY: ARE YOU DIABETIC? YES BS 143 THIS MORNING . OTHER: DO YOU NEED ANY PRESCRIPTIONS? NO . IF YES, PLEASE LIST: ____ . ANY NEW PROBLEMS WITH YOUR MEDICATIONS? NO . WHEN DID YOU LAST EAT? ____ . WHEN DID YOU LAST DRINK? ____ . WHAT DID YOU LAST DRINK? ____ . NAME OF PERSON DRIVING YOU HOME? ____ . DO YOU HAVE ANY OTHER QUESTIONS OR CONCERNS B/P HAS BEEN INCREASED SINCE PROCEDURE . VITAL SIGNS WT 303.0 LBS, HT 71 IN, BMI 42.26 INDEX, BP 143/92 MM HG, HR 76 /MIN, RR 16 /MIN, TEMP 97.9 F, OXYGEN SAT % 97%, SAFE IN ENV? (Y/N) Y, NA INITIALS TL 1116, REVIEWED BY: TOOTIE. EXAMINATION : PATIENT IS ALERT O X 3 AND COOPERATIVE. TENDERNESS IN THE LOWER BACK AND PARASPINAL MUSCLE GROUP. WALKS WITH CANE. MRI OF THE LUMBAR SPINE DONE ON 03/14/17 SHOWS LUMBAR STENOSIS AT L4-L5 AND A DISC BULGE AND HYPERTROPHY. LEADS WERE PULLED OUT INTACT. ASSESSMENTS RADICULOPATHY OF LUMBAR REGION - M54.16 (PRIMARY) SPINAL STENOSIS OF LUMBAR REGION WITHOUT NEUROGENIC CLAUDICATION - M48.061 POLYNEUROPATHY - G62.9 TREATMENT RADICULOPATHY OF LUMBAR REGION NOTES: WE DISCUSSED SEVERAL ISSUES WITH MR. CREWS'S PAIN MANAGEMENT CASE. AT THIS TIME PATIENT WILL CONTINUE WITH THE SAME MEDICATION REGIME BEFORE. PATIENT DENIES ABUSE OF ANY MEDICATION, DENIES USE OF ILLEGAL SUBSTACNES, AND STATES HE IS ONLY USING THE MEDICATION FOR PAIN MANAGEMENT. AT THIS TIME THE PATIENT WOULD LIKE TO PROCEED WITH THE PERMANENT DCS. AFTER DISCUSSING A SURGICAL IMPLANT VERSUS PERCUTANEOUS THE PATIENT WOULD LIKE TO PROCEED WITH A SURGICAL IMPLANT. PATIENT WILL BE REFERRED TO JUJU RUFFIN AT [facility] FOR A SURGICAL IMPLANT. INSTRUCTIONS WERE GIVEN, QUESTIONS WERE ANSWERED, PATIENT REPORTS UNDERSTANDING AND AGREES WITH THE PLAN. I, JASMIN HUA, DOCUMENTED THE ABOVE INFORMATION ACTING A SCRIBE FOR DR. RAI. I HAVE REVIEWED THE ABOVE DOCUMENT, WRITTEN BY JASMIN HANNAH AND I VERIFY THAT IT IS ACCURATE. DIAGNOSTIC IMAGING [facility] FLUORO GUIDANCE (PAIN)[id number] DISPOSITION & COMMUNICATION FOLLOW UP 4 WEEKS ELECTRONICALLY SIGNED BY PATRICA RAI MD ON 05/19/2017 AT 04:38 PM EST DISCLAIMER : THIS IS A VISIT SUMMARY EXTRACTED FROM THE [employer] CHART. IT IS NOT A COPY OF THE [employer] PROGRESS NOTE. STELLAD
== END ==
LOC: M PAIN 10:20
PROVIDERS: ATTEND Anesthesiology
DX: G89.29 Other chronic pain (principal); M54.16 Radiculopathy, lumbar region; M48.061 Spinal stenosis, lumbar region without neurogenic claudication; G62.9 Polyneuropathy, unspecified; E11.9 Type 2 diabetes mellitus without complications; I10 Essential (primary) hypertension; G47.30 Sleep apnea, unspecified; K21.9 Gastro-esophageal reflux disease without esophagitis; E66.01 Morbid (severe) obesity due to excess calories; Z68.41 Body mass index [BMI] 40.0-44.9, adult; F17.290 Nicotine dependence, other tobacco product, uncomplicated; Z79.891 Long term (current) use of opiate analgesic; Z79.899 Other long term (current) drug therapy
CPT/HCPCS: 76000; G0463